=== PATIENT | male | born 1970 | race Caucasian/White ===

== ENCOUNTER 2018-08-31 10:31 | Outpatient (CLI) | payer OTHER | END 2018-08-31 10:32 | disposition home or self-care (01) | LOC: C.LAB 10:31 | DX: E11.8 Type 2 diabetes mellitus with unspecified complications (principal) ==

== ENCOUNTER 2018-09-14 09:13 | Outpatient (CLI) | payer OTHER | END 2018-09-14 09:14 | disposition home or self-care (01) | LOC: C.USIC 09:13 | DX: K59.00 Constipation, unspecified (principal) ==

== ENCOUNTER 2018-09-20 09:30 | Outpatient (CLI) | payer OTHER | END 2018-09-20 09:31 | disposition home or self-care (01) | LOC: C.LAB 09:30 | DX: N41.9 Inflammatory disease of prostate, unspecified (principal); R31.9 Hematuria, unspecified ==